=== PATIENT | male | born 1965 | race Caucasian/White ===

== ENCOUNTER 2019-08-10 08:45 | Emergency (ER) | payer BC ==
[2019-08-10 09:09] VITALS: BP 124/79
--- NOTE | 2019-08-10 10:23 | UC ---
General HPI - HPI Summary HPI Summary: Patient states he sneezed hard this morning and developed left sided nose bleed - last about an hour, kept changing out the tissue and now it seems to have stopped as the same tissue is in his nose for the past half hour. Has been on Eliquis for DVT 6 months ago. Just had a repeat ultrasound that showed resolution of DVT. No congestion or nasal discharge Meds: REviewed - History of Current Complaint Chief Complaint: UCGeneralIllness Stated Complaint: NOSE BLEED Time Seen by Provider: 08/10/19 10:04 Pain Intensity: 0 - Allergy/Home Medications Allergies/Adverse Reactions: Allergies Allergy/AdvReac Type Severity Reaction Status Date / Time Sulfa (Sulfonamide Allergy Rash And Verified 08/10/19 09:09 Antibiotics) Itching Home Medications: Home Medications Apixaban* [Eliquis*] 5 mg PO BID 08/10/19 [History Confirmed 08/10/19] PMH/Surg Hx/FS Hx/Imm Hx Previously Healthy: Yes - Surgical History Surgical History: Yes Surgery Procedure, Year, and Place: gave kidney to brother - Social History Alcohol Use: Weekly Substance Use Type: None Smoking Status (MU): Never Smoked Tobacco Review of Systems All Other Systems Reviewed And Are Negative: Yes ENT: Positive: Epistaxis Physical Exam Triage Information Reviewed: Yes Appearance: Well-Appearing Vital Signs: Initial Vital Signs Temp 97.1 F 08/10/19 09:02 Pulse 66 08/10/19 09:02 Resp 20 08/10/19 09:02 BP 124/79 08/10/19 09:02 Pulse Ox 98 08/10/19 09:02 Vital Signs Reviewed: Yes ENT: Positive: Pharynx normal, TMs normal, Other - left nare - anterior erythema , no active bleeding or dried blood right nare: normal Respiratory: Positive: Lungs clear, Normal breath sounds Cardiovascular: Positive: RRR, No Murmur Course/Dx - Course Course Of Treatment: This is a 54 yr old with epistaxis Has stopped bleeding. Anterior nosebleed Plan Stop Eliquis Follow up with your PCP If your nosebleed continues, use clamp as discussed and keep tissue in place, return to urgent care if bleeding lasts longer than half hour or try to get in to see ENT for better evaluation and management. - Diagnoses Provider Diagnosis: Epistaxis Discharge ED - Sign-Out/Discharge Documenting (check all that apply): Patient Departure All imaging exams completed and their final reports reviewed: No Studies - Discharge Plan Condition: Fair Disposition: HOME Patient Education Materials: Nosebleed (ED) Referrals: No Primary Care Phys,NOPCP [Primary Care Provider] - Julian Doll MD [Medical Doctor] - Additional Instructions: Stop Eliquis Follow up with your PCP If your nosebleed continues, use clamp as discussed and keep tissue in place, return to urgent care if bleeding lasts longer than half hour or try to get in to see ENT for better evaluation and management. - Billing Disposition and Condition Condition: FAIR Disposition: Home
== END 2019-08-10 10:27 | disposition home or self-care (01) ==
LOC: UCEAST 08:45
DX: R04.0 Epistaxis (principal); Z88.2 Allergy status to sulfonamides
CPT/HCPCS: 99211; G0463